=== PATIENT | female | born 1985 | race Caucasian/White ===

== ENCOUNTER 2016-05-26 09:33 | Emergency (ER) | payer OTHER ==
[~2016-05-26] VITALS: Ht 167.6 cm; Wt 122.5 kg
--- NOTE | 2016-05-26 11:38 | REP ---
CT RIGHT HIP: CT right hip performed in the axial plane with sagittal and coronal reconstruction images. There is no evidence of fracture or dislocation. A tiny bone island is seen in the right iliac bone. There is mild narrowing of the right sacroiliac joint with subchondral sclerosis. IMPRESSION: No fracture or dislocation. Signed by Beny Saunders MD 05/26/2016 03:54 P
--- NOTE | 2016-05-26 11:48 | REP ---
CT THORACIC SPINE WITHOUT CONTRAST: HISTORY: Trauma. There is no acute fracture or subluxation. There is no disc bulge or herniation. The spinal canal and neural foramina are patent. The intervertebral discs are normal in height. IMPRESSION: There is no acute fracture or subluxation. Signed by Tyler Hendrix MD 05/26/2016 12:13 P
--- NOTE | 2016-05-26 11:51 | REP ---
CT of the cervical spine: Axial images are acquired helical scanning and are reformatted in sagittal and coronal projections: Vertebral body heights, interspacing alignment are normal. The facets are normally aligned. Prevertebral soft tissues are normal. The skull base, C1 and C2 are unremarkable. There are no posterior element fractures. Impression: There is no fracture or subluxation. Signed by Beny Lazaro MD 05/26/2016 11:43 A
--- NOTE | 2016-05-26 12:35 | REP ---
RIGHT ELBOW, FOUR VIEWS: There is no evidence of an acute fracture, dislocation or intrinsic bone disease. IMPRESSION: No fracture or dislocation. Signed by Beny Saunders MD 05/26/2016 03:55 P
[2016-05-26] MEDS ORDERED: ACETAMINOPHEN/CODEINE #3 TABLET (BULK) PO ONE (13:15)
[2016-05-26 13:28] VITALS: BP 143/89
== END 2016-05-26 13:30 | disposition home or self-care (01) ==
LOC: EDBD 09:33 → M ED 10:25
DX: M25.551 Pain in right hip (principal); V09.1XXA Pedestrian injured in unspecified nontraffic accident, initial encounter; Y92.410 Unspecified street and highway as the place of occurrence of the external cause; Y93.01 Activity, walking, marching and hiking; Y99.9 Unspecified external cause status

== ENCOUNTER → 2018-12-01 | Outpatient (REF) | payer OTHER | LOC: M LAB LCGH 13:30 | PROVIDERS: ATTEND Nurse Practitioner Family | DX: Z00.00 Encounter for general adult medical examination without abnormal findings (principal) ==